=== PATIENT | female | born 1990 | race Caucasian/White ===

== ENCOUNTER 2017-09-21 15:44 | Observation (INO) | payer OTHER ==
[~2017-09-21] VITALS: Ht 152.4 cm; Wt 82.7 kg
[2017-09-21] MEDS ORDERED: MULT-658 PO (16:08)
[2017-09-21] MEDS ORDERED: ONDA8TAB9 PO (16:08)
[2017-09-21 16:32] VITALS: BP 111/64
[2017-09-21 16:55] LABS: AMNISURE NEGATIVE (NEGATIVE)
[2017-09-21] MEDS ORDERED: TERBUTALINE 1 MG/ML, 1ML ONE (18:19)
[2017-09-21] MEDS ORDERED: TERBUTALINE 1 MG/ML, 1ML SQ ONE (18:30)
[2017-09-21 18:59] LABS: MICROSCOPIC NOT IND
[2017-09-21] MEDS ORDERED: BETAMETHASONE 6 MG/ML, 5ML IM ONE (21:16)
[2017-09-21] MEDS ORDERED: BETAMETHASONE 6 MG/ML, 5ML IM SCH (21:30)
== END 2017-09-21 21:40 | disposition home or self-care (01) ==
LOC: LDOP 15:44 → LDIP 19:54
PROVIDERS: ADMIT Obstetrics & Gynecology Gynecology; ATTEND Obstetrics & Gynecology Gynecology
DX: O42.913 Preterm premature rupture of membranes, unspecified as to length of time between rupture and onset of labor, third trimester (principal); Z3A.32 32 weeks gestation of pregnancy; Z79.899 Other long term (current) drug therapy
CPT/HCPCS: 36415; 59025; 76815; 81003; 82731; 84112; 87086; 96372; 99201; G0378; J0702; J3105; G0463

== ENCOUNTER 2017-11-13 06:45 | Inpatient (IN) | payer OTHER ==
[~2017-11-13] VITALS: Ht 152.4 cm; Wt 78.2 kg
[~2017-11-13 06:45] MED LIST: IBUP-1222 PO; MULT-658 PO; ONDA8TAB9 PO; OXYC5TAB3 PO
[2017-11-13] MEDS ORDERED: ONDANSETRON ODT 4 MG ONE (07:26)
[2017-11-13] MEDS ORDERED: HYDROmorphone 1 MG/ML, 1ML ONE ×2 (07:27→09:32)
[2017-11-13] MEDS ORDERED: SODIUM CHLORIDE FLUSH 10ML SYR IVF ONE (07:30)
[2017-11-13] MEDS ORDERED: ONDANSETRON ODT 4 MG PO ONE (07:30)
[2017-11-13] MEDS ORDERED: SODIUM CHLORIDE 0.9% 1,000ML IVBOLUS ONE (07:30)
[2017-11-13] MEDS: HYDROmorphone 1 MG/ML, 1ML IVPush PRN ×2 (07:33→08:18)
[2017-11-13 07:40] LABS: BASOPHILS # (AUTO) 0.02 x10^3/uL (0-0.1); BASOPHILS % (AUTO) 0 % (0-1); EOSINOPHILS # (AUTO) 0.01 x10^3/uL (0-0.4); EOSINOPHILS % (AUTO) 0 % (1-7); LYMPHOCYTES # (AUTO) 1.08 x10^3/uL (1-3.4); LYMPHOCYTES % (AUTO) 9 % (22-44); MD NO; MEAN CORPUSCULAR HEMOGLOBIN 25.6 pg (27.0-34.8); MEAN CORPUSCULAR HGB CONC 32.6 g/dL (32.4-35.8); MEAN CORPUSCULAR VOLUME 78.5 fL (80-100); MEAN PLATELET VOLUME 6.4 fL (7.4-10.4); MONOCYTES % (AUTO) 1 % (2-9); NEUTROPHILS # (AUTO) 10.59 x10^3/uL (1.8-6.8); NEUTROPHILS % (AUTO) 90 % (42-75); PLATELET COUNT 433 x10^3/uL (130-400); RED BLOOD COUNT 5.31 x10^6/uL (3.82-5.3); RED CELL DISTRIBUTION WIDTH 14.1 % (9.6-15.2)
[2017-11-13 07:51] LABS: ALANINE AMINOTRANSFERASE 49 U/L (12-78); ALBUMIN 3.3 g/dL (3.4-5.0); ANION GAP 8 mmol/L (5-15); CALCIUM 9.3 mg/dL (8.5-10.1); CHLORIDE 107 mmol/L (98-107); CREATININE 0.71 mg/dL (0.55-1.02)
[2017-11-13 07:54] LABS: ALKALINE PHOSPHATASE 183 U/L (45-117); BILIRUBIN,TOTAL 0.7 mg/dL (0.2-1.0)
[2017-11-13] MEDS ORDERED: HYDROmorphone 1 MG/ML, 1ML IVPush ONE (08:30)
[2017-11-13 09:05] LABS: CULTURE INDICATED? YES; MICROSCOPIC INDICATED
[2017-11-13] MEDS ORDERED: CEFTRIAXONE PMX 1GM/50ML 50 ML ONE (09:22)
[2017-11-13] MEDS ORDERED: CEFTRIAXONE PMX 1GM/50ML 50 ML IV ONE (09:30)
[2017-11-13] MEDS ORDERED: BISACODYL 10 MG SUPP PR PRN (11:00)
[2017-11-13] MEDS ORDERED: ONDANSETRON 2MG/ML, 2ML IVPush PRN (11:00)
[2017-11-13] MEDS ORDERED: ACETAMINOPHEN 325 MG TABLET PO PRN (11:00)
[2017-11-13 11:28] LABS: LDL/HDL RATIO 2.8 (0.5-3.0)
[2017-11-13 12:00] VITALS: BP 132/94
[2017-11-13] MEDS: ONDANSETRON ODT 4 MG PO PRN (12:04)
[2017-11-13] MEDS: PANTOPRAZOLE 40 MG IV IVPush SCH (12:07)
[2017-11-13] MEDS: SODIUM CHLORIDE 0.9% 1,000 ML IV SCH (12:08)
[2017-11-13] MEDS: DOCUSATE 100 MG CAPSULE PO SCH ×2 (13:07→19:51)
[2017-11-13] MEDS ORDERED: SUCCINYLCHOLINE 20 MG/ML, 10ML ONE (15:00)
[2017-11-13] MEDS ORDERED: DEXAMETHASONE 4 MG/ML, 1ML ONE (15:00)
[2017-11-13] MEDS ORDERED: PROPOFOL 10 MG/ML, 20ML ONE (15:00)
[2017-11-13] MEDS ORDERED: ROCURONIUM 10 MG/ML,10ML ONE (15:00)
[2017-11-13] MEDS ORDERED: MIDAZOLAM 1 MG/ML, 2ML ONE (15:15)
[2017-11-13] MEDS ORDERED: FENTANYL PF 100 MCG/2ML ONE ×2 (15:16→16:39)
[2017-11-13] MEDS ORDERED: MORPHINE SULFATE 4 MG/ML, 1ML IVPush PRN (15:30)
[2017-11-13] MEDS ORDERED: SCOPOLAMINE PATCH, 1.5MG PATCH.TD72 TD PRN (15:30)
[2017-11-13] MEDS ORDERED: ONDANSETRON ODT 8 MG PO PRN (15:30)
[2017-11-13] MEDS ORDERED: hydrALAzine 20 MG/ML, 1ML IV PRN (15:30)
[2017-11-13] MEDS ORDERED: FENTANYL PF 100 MCG/2ML IV PRN ×2 (15:30→17:00)
[2017-11-13] MEDS ORDERED: MIDAZOLAM 1 MG/ML, 2ML IV PRN (15:30)
[2017-11-13] MEDS ORDERED: ALBUTEROL SULFATE 2.5 MG/3 ML NPPB PRN (15:30)
[2017-11-13] MEDS ORDERED: MEPERIDINE/PF 25MG/0.5ML IVPush PRN (15:30)
[2017-11-13] MEDS ORDERED: PROMETHAZINE 25 MG/ML, 1ML IV PRN (15:30)
[2017-11-13] MEDS ORDERED: OXYcodone 5 MG/5 ML ORAL.SOL UDC PO PRN (15:30)
[2017-11-13] MEDS ORDERED: LABETALOL 5MG/ML, 20ML IV PRN (15:30)
[2017-11-13] MEDS ORDERED: PROMETHAZINE 12.5 MG SUPP PR PRN (15:30)
[2017-11-13] MEDS ORDERED: INDOMETHACIN 50 MG SUPP.RECT ONE (16:03)
[2017-11-13] MEDS ORDERED: INDOMETHACIN 50 MG SUPP.RECT PR ONE (16:30)
[2017-11-13] MEDS ORDERED: ONDANSETRON ODT 8 MG ONE (16:38)
[2017-11-13] MEDS ORDERED: OMNIPAQUE 350 MG/ML, 50 ML BOTTLE IV ONE (16:59)
[2017-11-13] MEDS ORDERED: ONDANSETRON ODT 8 MG PO ONE (17:00)
[2017-11-13 18:40] VITALS: BP 130/88
[2017-11-13] MEDS: HYDROmorphone 2 MG/ML, 1ML IVPush PRN ×2 (22:10→22:52)
[2017-11-14] MEDS: HYDROmorphone 2 MG/ML, 1ML IVPush PRN ×7 (01:59→22:37)
[2017-11-14 02:19] VITALS: BP 114/70
[2017-11-14] MEDS: SODIUM CHLORIDE 0.9% 1,000 ML IV SCH ×4 (03:36→23:40)
[2017-11-14 05:06] LABS: BASOPHILS # (AUTO) 0.04 x10^3/uL (0-0.1); BASOPHILS % (AUTO) 0 % (0-1); EOSINOPHILS % (AUTO) 0 % (1-7); LYMPHOCYTES # (AUTO) 1.22 x10^3/uL (1-3.4); LYMPHOCYTES % (AUTO) 14 % (22-44); MD NO; MEAN CORPUSCULAR HEMOGLOBIN 25.8 pg (27.0-34.8); MEAN CORPUSCULAR HGB CONC 32.8 g/dL (32.4-35.8); MEAN CORPUSCULAR VOLUME 78.5 fL (80-100); MEAN PLATELET VOLUME 6.4 fL (7.4-10.4); MONOCYTES # (AUTO) 0.13 x10^3/uL (0.2-0.8); MONOCYTES % (AUTO) 2 % (2-9); NEUTROPHILS # (AUTO) 7.23 x10^3/uL (1.8-6.8); NEUTROPHILS % (AUTO) 84 % (42-75); PLATELET COUNT 381 x10^3/uL (130-400); RED BLOOD COUNT 4.94 x10^6/uL (3.82-5.3); RED CELL DISTRIBUTION WIDTH 14.3 % (9.6-15.2)
[2017-11-14 05:13] LABS: CHLORIDE 110 mmol/L (98-107)
[2017-11-14 05:24] LABS: ALANINE AMINOTRANSFERASE 34 U/L (12-78); ALBUMIN 2.8 g/dL (3.4-5.0); ALKALINE PHOSPHATASE 132 U/L (45-117); ANION GAP 11 mmol/L (5-15); BILIRUBIN,TOTAL 0.7 mg/dL (0.2-1.0); CREATININE 0.54 mg/dL (0.55-1.02); TOTAL PROTEIN 6.8 g/dL (6.4-8.2)
[2017-11-14 07:54] VITALS: BP 119/72
[2017-11-14] MEDS: CEFTRIAXONE PMX 1GM/50ML 50 ML IV SCH (08:41)
[2017-11-14] MEDS: PANTOPRAZOLE 40 MG IV IVPush SCH (08:41)
[2017-11-14] MEDS: DOCUSATE 100 MG CAPSULE PO SCH ×2 (08:41→21:06)
[2017-11-14 12:59] LABS: INTERNATIONAL NORMALIZED RATIO 1.03 (0.93-1.1); PROTHROMBIN TIME 10.7 Seconds (9.6-11.5)
[2017-11-14] MEDS: ONDANSETRON ODT 4 MG PO PRN ×3 (14:26→22:36)
[2017-11-14 14:36] VITALS: BP 135/88
[2017-11-14 19:50] VITALS: BP 126/83
[2017-11-15] MEDS: HYDROmorphone 2 MG/ML, 1ML IVPush PRN ×8 (01:33→22:36)
[2017-11-15 02:40] VITALS: BP 125/81
[2017-11-15 04:45] LABS: BASOPHILS # (AUTO) 0.02 x10^3/uL (0-0.1); BASOPHILS % (AUTO) 0 % (0-1); EOSINOPHILS # (AUTO) 0.07 x10^3/uL (0-0.4); EOSINOPHILS % (AUTO) 1 % (1-7); LYMPHOCYTES # (AUTO) 1.73 x10^3/uL (1-3.4); LYMPHOCYTES % (AUTO) 19 % (22-44); MD NO; MEAN CORPUSCULAR HEMOGLOBIN 25.8 pg (27.0-34.8); MEAN CORPUSCULAR HGB CONC 32.7 g/dL (32.4-35.8); MEAN PLATELET VOLUME 6.4 fL (7.4-10.4); MONOCYTES % (AUTO) 4 % (2-9); NEUTROPHILS # (AUTO) 7.09 x10^3/uL (1.8-6.8); NEUTROPHILS % (AUTO) 76 % (42-75); PLATELET COUNT 314 x10^3/uL (130-400); RED BLOOD COUNT 4.65 x10^6/uL (3.82-5.3); RED CELL DISTRIBUTION WIDTH 14.4 % (9.6-15.2)
[2017-11-15 04:46] LABS: CHLORIDE 109 mmol/L (98-107)
[2017-11-15 04:47] LABS: ALANINE AMINOTRANSFERASE 26 U/L (12-78); ALBUMIN 2.7 g/dL (3.4-5.0); ANION GAP 7 mmol/L (5-15); CALCIUM 8.3 mg/dL (8.5-10.1); CREATININE 0.53 mg/dL (0.55-1.02)
[2017-11-15 04:49] LABS: ALKALINE PHOSPHATASE 104 U/L (45-117); BILIRUBIN,TOTAL 0.6 mg/dL (0.2-1.0); TOTAL PROTEIN 6.3 g/dL (6.4-8.2)
[2017-11-15] MEDS ORDERED: BUPIVACAINE/PF 0.5% ONE (06:47)
[2017-11-15] MEDS ORDERED: EPINEPHRINE 1 MG/ML, 1ML ONE (06:47)
[2017-11-15] MEDS ORDERED: LIDOCAINE GEL 2%, 5ML ONE (06:52)
[2017-11-15] MEDS ORDERED: MIDAZOLAM 1 MG/ML, 2ML ONE (06:53)
[2017-11-15] MEDS ORDERED: FENTANYL PF 100 MCG/2ML ONE ×2 (06:53→08:15)
[2017-11-15] MEDS ORDERED: SUCCINYLCHOLINE 20 MG/ML, 10ML ONE (07:09)
[2017-11-15] MEDS ORDERED: CEFOTETAN 2 GM ONE (07:09)
[2017-11-15] MEDS ORDERED: ONDANSETRON ODT 8 MG ONE (07:09)
[2017-11-15] MEDS ORDERED: NEOSTIGMINE 1 MG/ML, 10ML ONE (07:09)
[2017-11-15] MEDS ORDERED: KETOROLAC 30 MG/1 ML ONE (07:09)
[2017-11-15] MEDS ORDERED: PROPOFOL 10 MG/ML, 20ML ONE (07:09)
[2017-11-15] MEDS ORDERED: ROCURONIUM 10 MG/ML,10ML ONE (07:09)
[2017-11-15] MEDS ORDERED: DEXAMETHASONE 4 MG/ML, 5ML ONE (07:09)
[2017-11-15] MEDS ORDERED: GLYCOPYRROLATE 0.2MG/1ML, 5ML ONE (07:09)
[2017-11-15] MEDS ORDERED: BUPIVACAINE/PF-EPI 0.5% 1:200K INFIL ONE (07:22)
[2017-11-15] MEDS ORDERED: MIDAZOLAM 1 MG/ML, 2ML IV PRN (07:30)
[2017-11-15] MEDS ORDERED: OXYcodone 5 MG/5 ML ORAL.SOL UDC PO PRN (07:30)
[2017-11-15] MEDS ORDERED: EPHEDRINE 50 MG/ML, 1ML IM PRN (07:30)
[2017-11-15] MEDS ORDERED: PROMETHAZINE 25 MG/ML, 1ML IM PRN ×2 (07:30)
[2017-11-15] MEDS ORDERED: DIPHENHYDRAMINE 50 MG/ML, 1ML IVPush PRN (07:30)
[2017-11-15] MEDS ORDERED: LABETALOL 5MG/ML, 20ML IV PRN (07:30)
[2017-11-15] MEDS ORDERED: ALBUTEROL/IPRATROPIUM 2.5MG/0.5MG, 3 ML NPPB PRN (07:30)
[2017-11-15] MEDS ORDERED: DIAZEPAM 5 MG/ML, 2ML IVPush PRN (07:30)
[2017-11-15] MEDS ORDERED: HYDROmorphone 1 MG/ML, 1ML IV PRN (07:30)
[2017-11-15] MEDS ORDERED: SCOPOLAMINE PATCH, 1.5MG PATCH.TD72 TD PRN (07:30)
[2017-11-15] MEDS ORDERED: hydrALAzine 20 MG/ML, 1ML IV PRN (07:30)
[2017-11-15] MEDS ORDERED: LORazepam 2 MG/ML, 1ML IVPush PRN (07:30)
[2017-11-15] MEDS ORDERED: OXYcodone 5 MG/5 ML ORAL.SOL UDC ONE (08:15)
[2017-11-15] MEDS: FENTANYL PF 100 MCG/2ML IV PRN ×2 (08:20→08:27)
[2017-11-15 09:00] VITALS: BP 115/75
[2017-11-15] MEDS: DOCUSATE 100 MG CAPSULE PO SCH ×2 (10:57→21:18)
[2017-11-15] MEDS: PANTOPRAZOLE 40 MG IV IVPush SCH (10:57)
[2017-11-15] MEDS: SODIUM CHLORIDE 0.9% 1,000 ML IV SCH ×2 (11:05→19:27)
[2017-11-15] MEDS: CEFTRIAXONE PMX 1GM/50ML 50 ML IV SCH (11:08)
[2017-11-15 12:42] VITALS: BP 112/72
[2017-11-15] MEDS: ONDANSETRON ODT 4 MG PO PRN (17:59)
[2017-11-15 19:52] VITALS: BP 125/50
[2017-11-16 01:47] VITALS: BP 132/89
[2017-11-16] MEDS: SODIUM CHLORIDE 0.9% 1,000 ML IV SCH ×2 (01:50→08:06)
[2017-11-16] MEDS: HYDROmorphone 2 MG/ML, 1ML IVPush PRN ×2 (01:50→04:51)
[2017-11-16 04:26] LABS: BASOPHILS # (AUTO) 0.04 x10^3/uL (0-0.1); BASOPHILS % (AUTO) 0 % (0-1); EOSINOPHILS # (AUTO) 0.03 x10^3/uL (0-0.4); EOSINOPHILS % (AUTO) 0 % (1-7); LYMPHOCYTES % (AUTO) 21 % (22-44); MD NO; MEAN CORPUSCULAR HEMOGLOBIN 25.7 pg (27.0-34.8); MEAN CORPUSCULAR HGB CONC 32.8 g/dL (32.4-35.8); MEAN CORPUSCULAR VOLUME 78.3 fL (80-100); MEAN PLATELET VOLUME 6.4 fL (7.4-10.4); MONOCYTES # (AUTO) 0.49 x10^3/uL (0.2-0.8); MONOCYTES % (AUTO) 6 % (2-9); NEUTROPHILS # (AUTO) 6.52 x10^3/uL (1.8-6.8); NEUTROPHILS % (AUTO) 73 % (42-75); PLATELET COUNT 318 x10^3/uL (130-400); RED BLOOD COUNT 3.81 x10^6/uL (3.82-5.3); RED CELL DISTRIBUTION WIDTH 14.3 % (9.6-15.2)
[2017-11-16 04:34] LABS: ALBUMIN 2.2 g/dL (3.4-5.0); ANION GAP 6 mmol/L (5-15); CALCIUM 7.9 mg/dL (8.5-10.1); CHLORIDE 111 mmol/L (98-107)
[2017-11-16 04:37] LABS: ALANINE AMINOTRANSFERASE 39 U/L (12-78); ALKALINE PHOSPHATASE 79 U/L (45-117); BILIRUBIN,TOTAL 0.5 mg/dL (0.2-1.0); CREATININE 0.47 mg/dL (0.55-1.02); TOTAL PROTEIN 5.6 g/dL (6.4-8.2)
[2017-11-16 06:57] VITALS: BP 130/86
[2017-11-16] MEDS: OXYcodone IR 5MG TABLET PO PRN ×2 (08:02→12:04)
[2017-11-16] MEDS: DOCUSATE 100 MG CAPSULE PO SCH (08:02)
[2017-11-16] MEDS: PANTOPRAZOLE 40 MG IV IVPush SCH (08:02)
[2017-11-16] MEDS: CEFTRIAXONE PMX 1GM/50ML 50 ML IV SCH (10:16)
[2017-11-16] MEDS ORDERED: OXYC-302 PO (12:56)
[2017-11-16] MEDS ORDERED: POLY17PO5 PO (12:56)
[2017-11-16] MEDS ORDERED: SIMV40TA PO (13:02)
[2017-11-16 13:37] VITALS: BP 115/75
== END 2017-11-16 16:45 | disposition home or self-care (01) | DRG 769 ==
LOC: ED 07:22 → EDIP 09:27 → 3NW 11:12
PROVIDERS: ADMIT Hospitalist; ATTEND Hospitalist
PROC: 0FT44ZZ Resection of Gallbladder, Percutaneous Endoscopic Approach (ICD-10-PCS; principal; 2017-11-15 07:00)
DX: O26.63 Liver and biliary tract disorders in the puerperium (principal); E43 Unspecified severe protein-calorie malnutrition; K85.10 Biliary acute pancreatitis without necrosis or infection; K76.0 Fatty (change of) liver, not elsewhere classified; E86.0 Dehydration; K80.61 Calculus of gallbladder and bile duct with cholecystitis, unspecified, with obstruction; N39.0 Urinary tract infection, site not specified; K59.00 Constipation, unspecified; E78.5 Hyperlipidemia, unspecified; O90.89 Other complications of the puerperium, not elsewhere classified; O99.63 Diseases of the digestive system complicating the puerperium; K83.8 Other specified diseases of biliary tract; O99.89 Other specified diseases and conditions complicating pregnancy, childbirth and the puerperium; O25.3 Malnutrition in the puerperium; O86.20 Urinary tract infection following delivery, unspecified; O99.284 Endocrine, nutritional and metabolic diseases complicating childbirth; Z68.37 Body mass index [BMI] 37.0-37.9, adult; Z80.3 Family history of malignant neoplasm of breast; Z88.6 Allergy status to analgesic agent; Z88.8 Allergy status to other drugs, medicaments and biological substances; Z68.33 Body mass index [BMI] 33.0-33.9, adult
CPT/HCPCS: 36415; 71046; 74181; 74328; 76700; 80053; 80061; 81001; 83690; 85025; 85610; 87086; 88304; 96361; 96365; 96375; 96376; 99285; J0171; J0696; J1100; J1170; J1885; J2250; J2704; J2710; J3010; J3490; Q0162; Q9967; C1769; C9113; J0330; J7030; S0074